=== PATIENT | male | born 1965 | race Caucasian/White ===

== ENCOUNTER → 2018-01-05 | Outpatient (CLI) | payer OTHER ==
[~2018-01-05] MED LIST: NO ROUTINE MEDS; PER PO
--- NOTE | 2018-01-05 10:27 | RADIOLOGY IMAGING REPORT ---
FACILITY: [facility] - [place], [place] PATIENT NAME: Leo Ordaz : 1965 MR: [id number] V: [id number] EXAM DATE: ORDERING PHYSICIAN: TY GONZALEZ TECHNOLOGIST: Location: [facility] [place] Patient: Leo Ordaz : 1965 Visit/Account:[id number] Date of Sevice: 01/05/2018 Exam type: CHEST SINGLE AP History: Annual work physical Comparison: December 17, 2016. Findings: The lungs are free of acute effusions, infiltrates or edema. There is no evidence of a pneumothorax or pneumomediastinum. The cardiac silhouette is normal in size. There is an old right AC joint sepa ration IMPRESSION: 1. 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
== END ==
LOC: RAD 09:48
PROVIDERS: ATTEND Family Medicine
DX: Z02.89 Encounter for other administrative examinations (principal); S43.101A Unspecified dislocation of right acromioclavicular joint, initial encounter
CPT/HCPCS: 71045